=== PATIENT | male | born 1960 | race American Indian/Alaskan Native ===

== ENCOUNTER 2018-01-30 17:04 | Emergency (ER) | payer OTHER ==
[2018-01-30 17:49] LABS: Basophils % (Auto) 0.3 % (0.0-1.8); Eosinophils % (Auto) 0.2 % (0.0-4.3); Hematocrit 41.1 % (35.5-45.6); Lymphocytes # (Auto) 1.4 K/mm3 (1.2-5.4); Lymphocytes % (Auto) 8.3 % (13.4-35.0); Mean Corpuscular HGB Conc 34 % (32-34); Mean Corpuscular Hemoglobin 29 pg (28-32); Mean Corpuscular Volume 85 fl (84-94); Monocytes % (Auto) 5.9 % (0.0-7.3); Platelet Count 270 K/mm3 (140-440); Red Blood Count 4.83 M/mm3 (3.65-5.03)
[2018-01-30 18:01] LABS: Alanine Aminotransferase 15 units/L (7-56); Albumin 3.8 g/dL (3.9-5); BUN/Creatinine Ratio 11; Blood Urea Nitrogen 10 mg/dL (9-20); Hemolysis Index 0; Lipase 14 units/L (13-60)
[2018-01-30 20:42] LABS: Bilirubin,Urine NEG (Negative); Blood,Urine SM (Negative); Color,Urine Yellow (Yellow); Mucus,Urine FEW /HPF; Sperm,Urine 3+ /HPF (NP); Urobilinogen,Urine < 2.0 mg/dL (<2.0)
--- NOTE | 2018-01-30 22:19 | Emergency Department Report ---
ED Abdominal Pain HPI - General Chief Complaint: Abdominal Pain Stated Complaint: ABD PAIN Time Seen by Provider: 01/30/18 22:17 Source: patient Mode of arrival: Ambulatory Limitations: No Limitations - History of Present Illness Initial Comments: Generally healthy 57-year-old man presents with 2 day history of intermittent crampy and aching abdominal pain, and intermittent clear diarrheal discharge, with approximately 5 episodes in the past day. Patient has recurrent difficulties with chronic gas, which usually is relieved by flatulence, but he has no prior gastrointestinal history. 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 He feels mildly weak, but otherwise has few additional symptoms beside a generalized lower abdominal aching sensation, with crescendo to cramping, which is relieved by passage of diarrhea, which is mostly mucus. He has not had any blood, no history of melena, and he has not vomited. Past medical history is generally healthy, with no gastrointestinal history, and only other significant medical history being hypertension and hypercholesterolemia. Severity scale (0 -10): 4 Quality: cramping, aching Consistency: intermittent Improves With: nothing Worsens With: nothing Associated Symptoms: denies other symptoms, diarrhea. denies: nausea, vomiting - Related Data Previous Rx's Medication Instructions Recorded Last Taken Type Dicyclomine [Bentyl] 10 mg PO QID PRN #15 capsule 01/30/18 Unknown Rx HYDROcodone/ACETAMINOPHEN 1 each PO Q4-6H PRN #15 tablet 01/30/18 Unknown Rx [Hydrocodon-Acetaminophen 5-325] Ondansetron [Zofran ODT TAB] 8 mg PO Q8HR PRN #10 tab.rapdis 01/30/18 Unknown Rx Potassium Chloride [Klor-Con 10] 10 meq PO BID #10 tablet.er 01/30/18 Unknown Rx Sulfamethoxazole/Trimethoprim 1 each PO BID #10 tablet 01/30/18 Unknown Rx [Bactrim Ds Tablet] Allergies Allergy/AdvReac Type Severity Reaction Status Date / Time No Known Allergies Allergy Unverified 01/30/18 17:19 ED Review of Systems ROS: Stated complaint: ABD PAIN Other details as noted in HPI Comment: All other systems reviewed and negative Constitutional: malaise, weakness. denies: see HPI, diaphoresis, fever Eyes: denies: eye pain, eye discharge, vision change ENT: as per HPI Respiratory: denies: cough, shortness of breath, wheezing Cardiovascular: denies: chest pain, palpitations Endocrine: no symptoms reported Gastrointestinal: abdominal pain (mild to moderate, generalized and crampy, across lower abdomen), diarrhea. denies: nausea, vomiting, melena, hematochezia Genitourinary: denies: urgency, dysuria Musculoskeletal: denies: back pain, joint swelling, arthralgia Skin: denies: rash, lesions Neurological: denies: headache, weakness, paresthesias Psychiatric: denies: anxiety, depression ED Past Medical Hx - Past Medical History Hx Hypertension: Yes - Social History Smoking Status: Current Every Day Smoker - Medications Home Medications: Home Medications Medication Instructions Recorded Confirmed Last Taken Type Dicyclomine [Bentyl] 10 mg PO QID PRN #15 capsule 01/30/18 Unknown Rx HYDROcodone/ACETAMINOPHEN 1 each PO Q4-6H PRN #15 tablet 01/30/18 Unknown Rx [Hydrocodon-Acetaminophen 5-325] Ondansetron [Zofran ODT TAB] 8 mg PO Q8HR PRN #10 tab.rapdis 01/30/18 Unknown Rx Potassium Chloride [Klor-Con 10] 10 meq PO BID #10 tablet.er 01/30/18 Unknown Rx Sulfamethoxazole/Trimethoprim 1 each PO BID #10 tablet 01/30/18 Unknown Rx [Bactrim Ds Tablet] ED Physical Exam - General Limitations: No Limitations General appearance: alert, other (mild acute gastrointestinal discomfort) - Head Head exam: Present: atraumatic, normocephalic - Eye Eye exam: Present: PERRL, EOMI - ENT ENT exam: Present: normal exam - Neck Neck exam: Present: normal inspection, full ROM. Absent: tenderness, meningismus - Respiratory Respiratory exam: Present: normal lung sounds bilaterally - Cardiovascular Cardiovascular Exam: Present: regular rate, normal heart sounds. Absent: systolic murmur, diastolic murmur - GI/Abdominal GI/Abdominal exam: Present: soft, tenderness ([id number]-[id number] tenderness, across lower abdomen), hyperactive bowel sounds (mildly continuous bowel sounds , no borborygmi). Absent: guarding, rebound, rigid - Rectal Rectal exam: Present: deferred - Extremities Exam Extremities exam: Present: normal inspection ED Course Vital Signs 01/30/18 01/30/18 17:15 23:22 Temperature 98 F Pulse Rate 81 Respiratory 16 16 Rate Blood Pressure 147/97 O2 Sat by Pulse 97 97 Oximetry - Reevaluation(s) Reevaluation #1: 01/30/18 23:56 Patient is stable and moderately improved after rehydration with a liter of saline and 10 mEq of potassium. He is tolerating fluids, and will be treated empirically with an initial dose of Bactrim, and given Bentyl as well for cramping that he might have during the recovery period. ED Medical Decision Making - Lab Data Result diagrams: 01/30/18 17:32 01/30/18 17:32 - Medical Decision Making Patient has typical symptoms of an acute colitis, with the predominantly mucoid diarrhea, with associated hyperkalemia and probable inadequate electrolyte replacement, as patient reports she's been drinking primarily water over the past day or so, with little additional nutritional intake. Patient is not vomiting, tolerates fluids, and can be managed on an outpatient basis, and will be treated for his acute symptoms, and given the mucoid discharge, will also be treated with empiric antibiotics while he is awaiting culture results. Work excuse provided, prescriptions for Bactrim, ondansetron, Bentyl, and hydrocodone prescribed. Electrolyte replenishment with either Pedialyte or sports drinks recommended. - Differential Diagnosis acute gastroenteritis, acute colitis Critical Care Time: No Critical care attestation.: If time is entered above; I have spent that time in minutes in the direct care of this critically ill patient, excluding procedure time. ED Disposition Clinical Impression: Acute colitis, Hypokalemia due to loss of potassium, Dehydration, moderate Disposition: -01 TO HOME OR SELFCARE Is pt being admited?: No Does the pt Need Aspirin: No Condition: Stable Instructions: Dehydration (ED), Hypokalemia (ED), Infectious Colitis (ED) Prescriptions: Dicyclomine [Bentyl] 10 mg PO QID PRN #15 capsule PRN Reason: cramps HYDROcodone/ACETAMINOPHEN [Hydrocodon-Acetaminophen 5-325] 1 each PO Q4-6H PRN # 15 tablet PRN Reason: Pain Ondansetron [Zofran ODT TAB] 8 mg PO Q8HR PRN #10 tab.rapdis PRN Reason: Nausea Potassium Chloride [Klor-Con 10] 10 meq PO BID #10 tablet.er Sulfamethoxazole/Trimethoprim [Bactrim Ds Tablet] 1 each PO BID #10 tablet Referrals: PRIMARY CARE, [Primary Care Provider] - 3-5 Days Forms: Work/School Release Form(ED) Time of Disposition: 23:58
[2018-01-30] MEDS ORDERED: KCL 10MEQ/100ML 10 MEQ/100 ML BAG IV ONE (22:30)
[2018-01-30] MEDS ORDERED: NACL 0.9% 1000 ML 1,000 ML IV ONE (22:30)
[2018-01-30] MEDS ORDERED: BACTRIM DS PO ONE (23:58)
[2018-01-30] MEDS ORDERED: ZOFRAN ODT PO ONE (23:58)
[2018-01-30] MEDS ORDERED: BENTYL PO ONE (23:59)
[2018-01-31 00:31] VITALS: BP 152/104
== END 2018-01-31 00:32 | disposition home or self-care (01) ==
LOC: ED 17:04
DX: K52.9 Noninfective gastroenteritis and colitis, unspecified (principal); E87.6 Hypokalemia; E86.0 Dehydration; I10 Essential (primary) hypertension; F17.200 Nicotine dependence, unspecified, uncomplicated
CPT/HCPCS: 36415; 80053; 81001; 83690; 85007; 85025; 87045; 96365; 99283; J3480; J7030; Q0162

== ENCOUNTER 2019-03-14 08:43 | Emergency (ER) | payer OTHER ==
[2019-03-14 09:10] VITALS: BP 166/108
[2019-03-14] MEDS ORDERED: XYLOCAINE 2% INFILTRATI ONE (09:42)
[2019-03-14] MEDS ORDERED: BOOSTRIX IM ONE (10:07)
--- NOTE | 2019-03-14 10:11 | Emergency Department Report ---
HPI - General Chief Complaint: Extremity Injury, Upper Time Seen by Provider: 03/14/19 09:25 - HPI HPI: 58-year-old male presents to the emergency department with a complaint of some pain and some swelling to the end of the right middle finger that is been going on for the past 2 or 3 days. The patient was trying to cut and clean his fingernail and used a metal nail clipper and cali board to try and clean the grime underneath the nail. Since that time he has had some blue- denae discoloration under the nail and the pain and swelling. He has not taken anything for his symptoms prior to presentation. He has a past medical history of Hypertension. His PCP is Dr Ash Travis. No recent travel or sick contacts at home. He has full ROM to the affected finger. ED Past Medical Hx - Past Medical History Previous Medical History?: Yes Hx Hypertension: Yes Additional medical history: Right ankle broken - Surgical History Past Surgical History?: Yes Additional Surgical History: Colonocopy. Colon surgery, Right eye cataract - Social History Smoking Status: Current Every Day Smoker Substance Use Type: Alcohol, Prescribed - Medications Home Medications: Home Medications Medication Instructions Recorded Confirmed Last Taken Type Dicyclomine [Bentyl] 10 mg PO QID PRN #15 capsule 01/30/18 Unknown Rx HYDROcodone/ACETAMINOPHEN 1 each PO Q4-6H PRN #15 tablet 01/30/18 Unknown Rx [Hydrocodon-Acetaminophen 5-325] Ondansetron [Zofran ODT TAB] 8 mg PO Q8HR PRN #10 tab.rapdis 01/30/18 Unknown Rx Potassium Chloride [Klor-Con 10] 10 meq PO BID #10 tablet.er 01/30/18 Unknown Rx Sulfamethoxazole/Trimethoprim 1 each PO BID #10 tablet 01/30/18 Unknown Rx [Bactrim Ds Tablet] Clindamycin [Clindamycin CAP] 300 mg PO Q8H #21 cap 03/14/19 Unknown Rx HYDROcodone/APAP 5-325 [[place] 1 each PO Q6HR PRN #10 tablet 03/14/19 Unknown Rx 5/325] ED Review of Systems ROS: Stated complaint: INFECTED FINGER Other details as noted in HPI Comment: All other systems reviewed and negative Constitutional: denies: chills, fever Musculoskeletal: arthralgia. denies: back pain Skin: change in color. denies: pruritus Neurological: denies: numbness, paresthesias Physical Exam - Physical Exam Vital Signs: Vital Signs 03/14/19 09:06 Temperature 98.9 F Pulse Rate 76 Respiratory 18 Rate Blood Pressure 166/108 O2 Sat by Pulse 97 Oximetry Physical Exam: GENERAL: The patient is well-developed well-nourished. HENT: Normocephalic. Atraumatic. Patient has moist mucous membranes. EYES: Extraocular motions are intact. NECK: Supple. Trachea is midline. CHEST/LUNGS: Clear to auscultation. There is no respiratory distress noted. HEART/CARDIOVASCULAR: Regular. There is no tachycardia. There is no murmur. ABDOMEN: There is no abdominal distention. SKIN: Skin is warm and dry. There is some mild swelling of the distal right middle finger. There is some bluish black discoloration just under the nail of the distal right middle finger. There is thickening of the skin to the finger pad. No obvious area of paronychia or accumulation of pus. There is some mild erythema to the distal finger. NEURO: The patient is awake, alert, and oriented. The patient is cooperative. The patient has normal speech. MUSCULOSKELETAL: There is tenderness to palpation to the distal right middle finger. There is no limitation range of motion. Capillary refill less than 2 seconds and radial pulses +2 over 4 to the affected right finger and hand. ED Course Vital Signs 03/14/19 09:06 Temperature 98.9 F Pulse Rate 76 Respiratory 18 Rate Blood Pressure 166/108 O2 Sat by Pulse 97 Oximetry ED Medical Decision Making - Lab Data Result diagrams: 03/14/19 09:53 - Medical Decision Making This patient presents to the emergency department with pain to the distal right middle finger. He cut the nail and then used some type of metal emery board or a metal pick to try and get some of the crime from underneath the nail. He may have caused a slight abrasion starting infection. The generalized distal finger is tender to palpation. There is some mild swelling in this area and some mild erythema. No area of obvious fluctuance or accumulation of pus consistent with a paronychia or felon. Overall it does appear to be an infected finger. The area was soaked in a warm Betadine solution. The patient will be placed on antibiotics. A blood count was done that does not show any signs of leukocytosis. The patient is able to both flex and extend the finger. It is only the distal portion effected and this does not appear consistent with flexor tenosynovitis. Vital signs are stable including being afebrile. Patient was given a referral for orthopedics and encouraged to follow up with primary care. He has been instructed to return to the emergency Department with any worsening of his symptoms or any acute distress. - Differential Diagnosis paronychia, felon, cellulitis Critical Care Time: No Critical care attestation.: If time is entered above; I have spent that time in minutes in the direct care of this critically ill patient, excluding procedure time. ED Disposition Clinical Impression: Finger infection Hypertension Qualifiers: Hypertension type: essential hypertension Qualified Code(s): I10 - Essential (primary) hypertension Disposition: TO HOME OR SELFCARE Is pt being admited?: No Condition: Stable Instructions: Hypertension (ED) Additional Instructions: Please follow-up with your primary care physician in the next few days. Take the antibiotics as prescribed. Please be vigilant and monitoring your finger infection to make sure that it is not worsening. If there is any increased swelling, increased redness or discoloration, increased or new pains, development of fever, inability to move the finger, then you will need to return to the emergency department immediately. I am also giving you a referral for a local orthopedist, Dr. Medina, to follow up regarding your finger pains. You have been prescribed a medication that is sedating and therefore should not be taken prior to driving, working, and responsible for children and in no way should be mixed with alcohol of any quantity. Prescriptions: Clindamycin [Clindamycin CAP] 300 mg PO Q8H #21 cap HYDROcodone/APAP 5-325 [[place] 5/325] 1 each PO Q6HR PRN #10 tablet PRN Reason: Pain Referrals: ASH TRAVIS MD [Staff Physician] - 2-3 Days LAURA MEDINA MD [Staff Physician] - 2-3 Days Time of Disposition: 10:38
[2019-03-14 10:22] LABS: Basophils # (Auto) 0.1 K/mm3 (0.0-0.1); Basophils % (Auto) 0.9 % (0.0-1.8); Eosinophils # (Auto) 0.4 K/mm3 (0.0-0.4); Eosinophils % (Auto) 4.7 % (0.0-4.3); Hematocrit 40.5 % (35.5-45.6); Hemoglobin 13.8 gm/dl (11.8-15.2); Lymphocytes # (Auto) 2.6 K/mm3 (1.2-5.4); Lymphocytes % (Auto) 30.7 % (13.4-35.0); Mean Corpuscular HGB Conc 34 % (32-34); Mean Corpuscular Volume 88 fl (84-94); Monocytes # (Auto) 0.9 K/mm3 (0.0-0.8); Monocytes % (Auto) 10.2 % (0.0-7.3); Platelet Count 259 K/mm3 (140-440); Red Blood Count 4.61 M/mm3 (3.65-5.03); Red Cell Distribution Width 14.3 % (13.2-15.2)
[2019-03-14] MEDS ORDERED: CLEOCIN PO ONE (10:44)
[2019-03-14] MEDS ORDERED: NORCO 5/325 PO ONE (10:44)
== END 2019-03-14 11:39 | disposition home or self-care (01) ==
LOC: ED 08:43
DX: L03.011 Cellulitis of right finger (principal); I10 Essential (primary) hypertension; F17.200 Nicotine dependence, unspecified, uncomplicated; Z90.89 Acquired absence of other organs; Z79.899 Other long term (current) drug therapy
CPT/HCPCS: 36415; 85025; 90471; 90715; 99283